=== PATIENT | female | born 1945 | race Caucasian/White ===

== ENCOUNTER 2025-05-29 17:56 | Inpatient (IN) | payer MEDICARE, BC ==
[~2025-05-29] VITALS: Ht 165.1 cm; Wt 82.6 kg
[~2025-05-29 17:56] MED LIST: ANAS1TAB8; GLIP5TAB13
[2025-05-29] MEDS ORDERED: DOSING PER PHARMACY-VANCOMYCIN IV XX PRN (19:00)
[2025-05-29] MEDS ORDERED: ONDANSETRON HCL/PF 4 MG/2 ML VIAL IVP PRN (19:00)
[2025-05-29] MEDS ORDERED: ADAL40PE5 SQ (19:25)
[2025-05-29] MEDS ORDERED: ATOR20TA PO (19:25)
[2025-05-29] MEDS ORDERED: LISI-768 PO (19:25)
[2025-05-29] MEDS ORDERED: ASPI-1420 PO (19:25)
[2025-05-29] MEDS ORDERED: DULA0.75 SQ (19:25)
[2025-05-29 20:00] VITALS: BP 96/54; TEMP 98.2; O2SAT 96
[2025-05-29] MEDS: IV LR 1000 ML 1,000 ML IV SCH (20:56)
[2025-05-29] MEDS: CEFEPIME 2 GM in IV D5W 100 ML IV SCH (20:56)
[2025-05-29] MEDS: ENOXAPARIN SODIUM 40 MG/0.4 ML DISP.SYRIN SQ SCH (21:06)
[2025-05-29] MEDS: VANCOMYCIN HCL 1.25 GM in IV D5W 250 ML IV ONE (23:48)
[2025-05-30 06:02] LABS: PLATELET COUNT (AUTO) 249 K/uL (150-450); RED BLOOD CELL COUNT(AUTO) 3.86 MIL/uL (4.0-5.2); RED CELL DISTRIBUTION WIDTH 15.8 % (11.5-15.0); WHITE BLOOD COUNT (AUTO) 18.9 K/uL (4.3-11.0)
[2025-05-30 06:18] LABS: CALCIUM, SERUM 8.2 mg/dL (8.5-10.1); CREATININE 1.4 mg/dL (0.6-1.3); PHOSPHORUS 3.2 mg/dL (2.5-4.9); SODIUM SERUM 136.0 mmol/L (136-145); UREA NITROGEN, BLOOD 19.0 mg/dL (7-18)
[2025-05-30] MEDS: ACETAMINOPHEN 325 MG TABLET PO PRN (06:38)
[2025-05-30 07:30] VITALS: BP 110/54; TEMP 97.5; O2SAT 98
[2025-05-30] MEDS: PANTOPRAZOLE 40 MG TABLET.DR PO SCH (08:01)
[2025-05-30] MEDS: MAGNESIUM OXIDE 400 MG TABLET PO SCH (11:07)
[2025-05-30 13:06] LABS: CREATININE, URINE 68.2 MG/DL (30.0-125.0); URINE SODIUM, RANDOM 31.0 mmol/l (40-220); URINE TOTAL PROTEIN 34.9 mg/dL (0-11.9)
[2025-05-30 13:07] LABS: APPEARANCE,URINE CLEAR (CLEAR); BLOOD, URINE 2+ Ery/uL (NEGATIVE); LEUKOCYTE ESTERASE ,URINE 1+ (NEGATIVE); NITRITE, URINE NEGATIVE (NEGATIVE); UGLUCOSE NEGATIVE (NEGATIVE)
[2025-05-30 13:12] LABS: ADD URINE CULTURE YES
[2025-05-30 13:13] LABS: SQUAMOUS EPITHELIAL CELL,UR Few /HPF (None Seen)
[2025-05-30 13:30] LABS: EOSINOPHIL,URINE None Seen
[2025-05-30 16:00] VITALS: BP 125/59; TEMP 97.5; O2SAT 99
[2025-05-30 20:00] VITALS: BP 152/62; TEMP 98.1; O2SAT 97
[2025-05-30] MEDS: HYDROCODONE/APAP 10/325MG TABLET PO PRN (20:32)
[2025-05-30] MEDS: VANCOMYCIN 1 GM in IV D5W 250ml IV SCH (22:21)
[2025-05-30] MEDS ORDERED: HYDR28.318 TP (23:25)
[2025-05-31 07:36] LABS: PLATELET COUNT (AUTO) 261 K/uL (150-450); RED BLOOD CELL COUNT(AUTO) 3.38 MIL/uL (4.0-5.2); RED CELL DISTRIBUTION WIDTH 15.6 % (11.5-15.0); WHITE BLOOD COUNT (AUTO) 14.4 K/uL (4.3-11.0)
[2025-05-31 07:52] LABS: ASPARTATE AMINOTRANSFERASE 17.0 U/L (15-37); CALCIUM, SERUM 8.3 mg/dL (8.5-10.1); CREATININE 1.3 mg/dL (0.6-1.3); PHOSPHORUS 2.8 mg/dL (2.5-4.9); SODIUM SERUM 135.0 mmol/L (136-145); TOTAL PROTEIN, SERUM 6.5 g/dL (6.4-8.2); UREA NITROGEN, BLOOD 19.0 mg/dL (7-18)
[2025-05-31 07:54] LABS: CREATINE KINASE, TOTAL 31.0 U/L (26-192)
[2025-05-31 08:58] VITALS: BP 108/58; TEMP 97.7; O2SAT 96
[2025-05-31] MEDS: MAGNESIUM OXIDE 400 MG TABLET PO ONE (10:08)
[2025-05-31] MEDS: Z GUARD REMEDY 4 OZ OINT TP PRN (10:09)
[2025-05-31] MEDS: THERAHONEY GEL 1.5 OZ TUBE TP SCH (11:27)
[2025-05-31] MEDS: LIDOCAINE VISCOUS 2% UD 15 ML UDC MM PRN (14:33)
[2025-05-31 16:11] VITALS: BP 143/62; TEMP 98.1; O2SAT 97
[2025-05-31 20:00] VITALS: BP 125/63; TEMP 97.9; O2SAT 97
[2025-06-01 06:11] LABS: PTH, INTACT 24 pg/mL (15-65)
[2025-06-01 07:09] LABS: CALCIUM, SERUM 8.7 mg/dL (8.5-10.1); CREATININE 1.3 mg/dL (0.6-1.3); SODIUM SERUM 139.0 mmol/L (136-145); UREA NITROGEN, BLOOD 19.0 mg/dL (7-18)
[2025-06-01 08:00] VITALS: BP 148/77; TEMP 97.7; O2SAT 98
[2025-06-01 16:00] VITALS: BP 137/60; TEMP 97.8; O2SAT 98
[2025-06-01 16:04] LABS: PLATELET COUNT (AUTO) 270 K/uL (150-450); RED BLOOD CELL COUNT(AUTO) 3.70 MIL/uL (4.0-5.2); RED CELL DISTRIBUTION WIDTH 15.1 % (11.5-15.0); WHITE BLOOD COUNT (AUTO) 7.7 K/uL (4.3-11.0)
[2025-06-01 20:00] VITALS: BP 152/59; TEMP 98.2; O2SAT 96
[2025-06-02 07:13] LABS: PLATELET COUNT (AUTO) 303 K/uL (150-450); RED BLOOD CELL COUNT(AUTO) 3.76 MIL/uL (4.0-5.2); RED CELL DISTRIBUTION WIDTH 15.4 % (11.5-15.0); WHITE BLOOD COUNT (AUTO) 7.3 K/uL (4.3-11.0)
[2025-06-02 07:28] LABS: CALCIUM, SERUM 8.7 mg/dL (8.5-10.1); CREATININE 1.3 mg/dL (0.6-1.3); PHOSPHORUS 2.8 mg/dL (2.5-4.9); SODIUM SERUM 139.0 mmol/L (136-145); UREA NITROGEN, BLOOD 21.0 mg/dL (7-18)
[2025-06-02 08:00] VITALS: BP 142/86; TEMP 98.1; O2SAT 97
[2025-06-02] MEDS ORDERED: LIDOCAINE 2% JEL 5 ML TUBE MC PRN (13:30)
[2025-06-02 16:00] VITALS: BP 131/76; TEMP 98.1; O2SAT 95
[2025-06-02] MEDS: LIDOCAINE 5% OINT 35.44 GM TUBE MC PRN (18:02)
[2025-06-02 21:00] VITALS: BP 128/62; TEMP 97.9; O2SAT 94
[2025-06-03 06:48] LABS: PLATELET COUNT (AUTO) 304 K/uL (150-450); RED BLOOD CELL COUNT(AUTO) 3.63 MIL/uL (4.0-5.2); RED CELL DISTRIBUTION WIDTH 15.1 % (11.5-15.0); WHITE BLOOD COUNT (AUTO) 7.1 K/uL (4.3-11.0)
[2025-06-03 07:22] LABS: CALCIUM, SERUM 8.8 mg/dL (8.5-10.1); CREATININE 1.2 mg/dL (0.6-1.3); PHOSPHORUS 3.1 mg/dL (2.5-4.9); SODIUM SERUM 137.0 mmol/L (136-145); UREA NITROGEN, BLOOD 21.0 mg/dL (7-18)
[2025-06-03 08:52] VITALS: BP 170/87; TEMP 97.5; O2SAT 96
[2025-06-03 09:03] VITALS: BP 146/59
[2025-06-03 16:18] VITALS: BP 160/72; TEMP 98.1; O2SAT 97
[2025-06-03 17:35] VITALS: BP 138/62
[2025-06-03 20:00] VITALS: BP 134/58; TEMP 97.5; O2SAT 98
[2025-06-04 07:19] LABS: PLATELET COUNT (AUTO) 323 K/uL (150-450); RED BLOOD CELL COUNT(AUTO) 3.84 MIL/uL (4.0-5.2); RED CELL DISTRIBUTION WIDTH 15.7 % (11.5-15.0); WHITE BLOOD COUNT (AUTO) 7.0 K/uL (4.3-11.0)
[2025-06-04 07:39] LABS: CALCIUM, SERUM 8.6 mg/dL (8.5-10.1); CREATININE 1.1 mg/dL (0.6-1.3); PHOSPHORUS 3.0 mg/dL (2.5-4.9); SODIUM SERUM 138.0 mmol/L (136-145); UREA NITROGEN, BLOOD 19.0 mg/dL (7-18)
[2025-06-04 08:00] VITALS: BP 156/84; TEMP 97.3; O2SAT 97
[2025-06-04] MEDS ORDERED: DOXY-326 PO (12:45)
== END 2025-06-04 16:02 | disposition home or self-care (01) | DRG 872 ==
LOC: MED 17:56
PROVIDERS: ADMIT Nurse Practitioner Acute Care; ATTEND Nurse Practitioner Family
DX: A41.9 Sepsis, unspecified organism (principal); E87.20 Acidosis, unspecified; L03.114 Cellulitis of left upper limb; N39.0 Urinary tract infection, site not specified; N17.9 Acute kidney failure, unspecified; L88 Pyoderma gangrenosum; E86.0 Dehydration; D64.9 Anemia, unspecified; E11.9 Type 2 diabetes mellitus without complications; E66.9 Obesity, unspecified; I89.0 Lymphedema, not elsewhere classified; M89.8X9 Other specified disorders of bone, unspecified site; Z85.3 Personal history of malignant neoplasm of breast; Z93.2 Ileostomy status; K80.20 Calculus of gallbladder without cholecystitis without obstruction; Z90.13 Acquired absence of bilateral breasts and nipples; Z91.81 History of falling; D72.829 Elevated white blood cell count, unspecified; N18.9 Chronic kidney disease, unspecified; E83.89 Other disorders of mineral metabolism; Z79.69 Long term (current) use of other immunomodulators and immunosuppressants; R23.4 Changes in skin texture
CPT/HCPCS: 36415; 71045-TC; 73200-TC; 80048-TC; 80053-TC; 80076-TC; 80202-TC; 81001; 82550-TC; 82570-TC; 82962-TC; 83735-TC; 83970; 84100-TC; 84155; 84165; 84300-TC; 85025-TC; 87040-TC; 87086-TC; 93971-TC; 97110-TC; 97116-TC; 97530-TC; A4223; A6253; A6403; G0378; J0692; J1650; J3373; J3490; J7040; J7060; J7120